=== PATIENT | female | born 1965 | race Caucasian/White ===

== ENCOUNTER → 2021-08-23 | Outpatient (CLI) | payer OTHER ==
[2014-11-04 14:05] VITALS: BP 101/62
[~2021-08-23] MED LIST: POTA20TA12 PO
--- NOTE | 2021-08-23 15:10 | RAD ---
EXAM: XR LUMBAR SPINE 2-3V, XR CERVICAL SPINE 4-5V 08/23/2021 10:55 AM CLINICAL INDICATION: Neck and lower back pain COMPARISON: None available TECHNIQUE: AP, right and left oblique, lateral, and odontoid views of the cervical spine. AP and lat eral views of the lumbar spine. FINDINGS: Cervical spine: There is no acute fracture. Alignment is normal. There is mild disc space narrowing, greatest at C4-C5. Tiny anterior osteophytes throughout the cervical spine. There is [id number] facet arthrosis, greatest at C4-C5 bilaterally. The tendons is partially obscured. Prevertebral soft tissue is normal. Lumbar spine: There is transitional anatomy with lumbarization of S1. There is levoscoliosis of the l umbar spine. No acute fracture. There is 5 mm retrolisthesis of L2 on L3. Mild disc space narrowing t hroughout the lumbar spine. Tiny anterior osteophytes. There is facet arthrosis in the lower lumbar spine. IMPRESSION: 1. Mild degenerative disc disease of the cervical spine. 2. Transitional anatomy at the lumbosacral junction. 3. Levoscoliosis of the lumbar spine with mild degenerative disc disease. Electronically signed by: Melodie Wade MD (08/23/2021 3:08 PM) [id number]
--- NOTE | 2021-08-23 15:10 | RAD ---
EXAM: XR LUMBAR SPINE 2-3V, XR CERVICAL SPINE 4-5V 08/23/2021 10:55 AM CLINICAL INDICATION: Neck and lower back pain COMPARISON: None available TECHNIQUE: AP, right and left oblique, lateral, and odontoid views of the cervical spine. AP and lat eral views of the lumbar spine. FINDINGS: Cervical spine: There is no acute fracture. Alignment is normal. There is mild disc space narrowing, greatest at C4-C5. Tiny anterior osteophytes throughout the cervical spine. There is [id number] facet arthrosis, greatest at C4-C5 bilaterally. The tendons is partially obscured. Prevertebral soft tissue is normal. Lumbar spine: There is transitional anatomy with lumbarization of S1. There is levoscoliosis of the l umbar spine. No acute fracture. There is 5 mm retrolisthesis of L2 on L3. Mild disc space narrowing t hroughout the lumbar spine. Tiny anterior osteophytes. There is facet arthrosis in the lower lumbar spine. IMPRESSION: 1. Mild degenerative disc disease of the cervical spine. 2. Transitional anatomy at the lumbosacral junction. 3. Levoscoliosis of the lumbar spine with mild degenerative disc disease. Electronically signed by: Melodie Wade MD (08/23/2021 3:08 PM) [id number]
== END ==
LOC: RAD 10:40
PROVIDERS: ATTEND Family Medicine
DX: Z02.71 Encounter for disability determination (principal); M47.812 Spondylosis without myelopathy or radiculopathy, cervical region; M51.36 Other intervertebral disc degeneration, lumbar region; M41.86 Other forms of scoliosis, lumbar region; M43.8X7 Other specified deforming dorsopathies, lumbosacral region; M48.02 Spinal stenosis, cervical region; M48.061 Spinal stenosis, lumbar region without neurogenic claudication; M25.78 Osteophyte, vertebrae
CPT/HCPCS: 72050; 72100